=== PATIENT | male | born 1960 | race Caucasian/White ===

== ENCOUNTER 2019-02-12 10:39 | Day surgery (SDC) | payer MEDICARE, MEDICAID ==
[2019-02-12] VITALS (15 sets, daily range): BP systolic 115–152; BP diastolic 69–89
[~2019-02-12] VITALS: Ht 175.3 cm; Wt 76.6 kg
[2019-02-12] MEDS ORDERED: LORazepam 0.5 MG tablet PO PRN (11:20)
[2019-02-12] MEDS ORDERED: normal saline 1,000 ML IV SCH (11:20)
[2019-02-12] MEDS ORDERED: nitroGLYCERIN 0.4mg SUBLingual tab SL PRN (11:20)
[2019-02-12] MEDS ORDERED: diphenhydrAMINE 25mg capsule PO PRN (11:20)
[2019-02-12] MEDS ORDERED: LIDOcaine 1% (10mg/ml) 2ml vial ONE (11:37)
[2019-02-12 12:16] LABS: INR 0.9 INR; PARTIAL THROMBOPLASTIN TIME 31 SECONDS (22-32); PROTHROMBIN TIME 9.4 SECONDS (9.0-12.0)
[2019-02-12] MEDS ORDERED: ATEN-169 PO (12:28)
[2019-02-12] MEDS ORDERED: fentaNYL/PF 50MCG/1 ML 2ML syringe ONE ×2 (13:32→14:14)
[2019-02-12] MEDS ORDERED: LIDOcaine 1% (10mg/ml)w/preservative injection 20ml MDV ONE (13:32)
[2019-02-12] MEDS ORDERED: iohexol 350 MG/ML 50ML vial IV ONE (13:32)
[2019-02-12] MEDS ORDERED: iohexol 350MG/ML 100ml bottle IV ONE (13:32)
[2019-02-12] MEDS ORDERED: midazolam 2 mg/2 ml injection ONE ×2 (13:32→14:06)
[2019-02-12] MEDS ORDERED: SIMV20TA5 PO (13:52)
[2019-02-12] MEDS ORDERED: LORA1TAB PO (13:53)
[2019-02-12] MEDS ORDERED: LISI-600 PO (13:53)
[2019-02-12] MEDS ORDERED: FLO0.4C PO (13:54)
[2019-02-12] MEDS ORDERED: CLOP75TA15 PO (13:55)
[2019-02-12] MEDS ORDERED: ASPI-1264 PO (13:55)
[2019-02-12] MEDS ORDERED: MECL12.584 PO (13:57)
[2019-02-12] MEDS ORDERED: DRON400T6 PO (13:59)
[2019-02-12] MEDS ORDERED: NITR0.4T51 SL (13:59)
[2019-02-12] MEDS ORDERED: proCHLORperazine 10 MG/2 ml inj ONE (14:12)
[2019-02-12] MEDS ORDERED: ondansetron/PF 4mg/2ml inj IV PRN (15:25)
[2019-02-12] MEDS ORDERED: HYDROcodone/acetaminophen 5mg/325mg tablet PO PRN (15:25)
[2019-02-12] MEDS ORDERED: proCHLORperazine 10 MG/2 ml inj IV PRN (15:25)
[2019-02-12] MEDS ORDERED: OXAZEpam 15mg capsule PO PRN (15:25)
[2019-02-12] MEDS ORDERED: HYDROcodone/acetaminophen 10/325mg tab PO PRN (15:25)
--- NOTE | 2019-02-12 20:30 | NUR ---
PATIENT DISCHARGED TO HOME WITH SELF CARE. DISCHARGE INSTRUCTIONS GIVEN AND EDUCATION PROVIDED REGARDING POST ANGIOGRAM AND SEDATIONS CARE. HAS BEEN INSTRUCTED TO CONTINUE HOME MEDICATIONS PREVIOUSLY ORDERED AND TO RETURN TO ER FOR ANY COMPLICATIONS. PATIENT LEFT VIA WHEELCHAIR WITH . ALL PERSONAL BELONGINGS WENT WITH PATIENT. PAPERWORK SIGNED AND COMPLETED, COPY KEPT WITH CHART.
== END 2019-02-12 20:30 | disposition home or self-care (01) ==
LOC: SSTAY O 10:39 → MED 3N 17:51 → SSTAY O 20:30
PROVIDERS: ATTEND Internal Medicine Cardiovascular Disease
DX: I25.10 Atherosclerotic heart disease of native coronary artery without angina pectoris (principal); I48.0 Paroxysmal atrial fibrillation; I10 Essential (primary) hypertension; E78.5 Hyperlipidemia, unspecified; I73.9 Peripheral vascular disease, unspecified; Z79.899 Other long term (current) drug therapy; Z88.6 Allergy status to analgesic agent; Z88.2 Allergy status to sulfonamides; Z88.8 Allergy status to other drugs, medicaments and biological substances; Z98.890 Other specified postprocedural states
CPT/HCPCS: 36415; 71046; 85610; 85730; 93458; 99152; 99153; A6257; J0780; J1644; J2001; J2250; J3010; J3490; J7030; Q0163; Q9967; A4620; C1760; C1769; G0378